=== PATIENT | male | born 1960 | race African-American/Black ===

== ENCOUNTER 2017-01-09 18:17 | Emergency (ER) | payer OTHER ==
[~2017-01-09] VITALS: Ht 180.3 cm; Wt 99.8 kg
[~2017-01-09 18:17] MED LIST: GLIP10TA3 PO; METF10002 PO
[2017-01-09] MEDS ORDERED: JANUVIA PO (18:25)
[2017-01-09] MEDS ORDERED: NORCO PO (18:25)
[2017-01-09] MEDS ORDERED: IV NORMAL SALINE 1000 ML BAG IV ONE (18:45)
[2017-01-09 18:56] LABS: BASOPHILS % (AUTO) 0.8 % (0.0-2.0); EOSINOPHILS # (AUTO) 0.1 K/uL (0.0-0.7); EOSINOPHILS % (AUTO) 4.2 % (0.0-7.0); HEMATOCRIT 43.1 % (40-50); HEMOGLOBIN 13.9 G/DL (14.0-18.0); LYMPHOCYTES # (AUTO) 1.6 K/UL (0.8-4.8); LYMPHOCYTES % (AUTO) 45.1 % (20.5-51.5); MEAN CORPUSCULAR HEMOGLOBIN 25.3 UUG (27.0-31.0); MEAN CORPUSCULAR HGB CONC 32 g/dL (32.0-37.0); MEAN CORPUSCULAR VOLUME 78.5 FL (82.0-92.0); MONOCYTES # (AUTO) 0.2 K/UL (0.1-1.30); MONOCYTES % (AUTO) 6.5 % (0.0-11.0); NEUTROPHILS # (AUTO) 1.5 K/UL (1.8-8.9); NEUTROPHILS % (AUTO) 43.4 % (38.5-71.5); PLATELET COUNT (AUTO) 177 K/UL (150-450); RED BLOOD CELL COUNT(AUTO) 5.49 MIL/UL (4.7-6.1); WHITE BLOOD COUNT (AUTO) 3.4 K/UL (4.0-11.2)
--- NOTE | 2017-01-09 19:05 | NUR ---
PT IS IN ROOM #1B. DR SANDY EVALUATED THE PT.
[2017-01-09 19:09] LABS: BILIRUBIN,DIRECT 0.1 mg/dL (0.0-0.2); BILIRUBIN,TOTAL 0.3 mg/dL (0.2-1.0); POTASSIUM 4.3 mmol/L (3.5-5.1); TOTAL PROTEIN, SERUM 7.7 g/dL (6.4-8.2)
[2017-01-09] MEDS ORDERED: INSULIN REGULAR, HUMAN 1,000 UNITS/10 ML VIAL SUBCUT ONE (20:30)
[2017-01-09] MEDS ORDERED: INSULIN REGULAR, HUMAN 300 UNIT/3 ML VIAL ONE (20:52)
--- NOTE | 2017-01-09 20:52 | NUR ---
mse completed, pt d/c'd home, aci given. iv d/c'd intact ,pt ambulated w/o diff, took all belongings.
[2017-01-09 20:53] VITALS: BP 129/85
== END 2017-01-09 20:54 | disposition home or self-care (01) ==
LOC: ER 18:17
DX: R55 Syncope and collapse (principal); E11.65 Type 2 diabetes mellitus with hyperglycemia; Z79.4 Long term (current) use of insulin
CPT/HCPCS: 36415; 70450; 71010; 80048; 80076; 82962 ×2; 84484; 85025; 85730; 93005; 96360; 96372; 99285; A4663; J1815; J7030; 70030-TC

== ENCOUNTER 2018-05-05 21:19 | Emergency (ER) | payer MEDICAID ==
[~2018-05-05] VITALS: Ht 180.3 cm; Wt 102.5 kg
[~2018-05-05 21:19] MED LIST changes: +JANUVIA PO; +METF-442 PO; -METF10002 PO; +NORCO PO
[2018-05-05] MEDS ORDERED: BASAGLAR SQ (21:28)
--- NOTE | 2018-05-05 21:30 | NUR ---
Pt ambulated to ER with with c/o shortness of breath. Respirations even + unlabored. SA02 97% room air. NAD noted. Pt states he stopped drinking alcohol 2 weeks ago. No chest pain. No GI/ distress. No fever/chills/cough. at bedside. Will ctm.
--- NOTE | 2018-05-05 21:58 | NUR ---
Dr. Miller DURBIN MD at bedside to evaluate pt.
--- NOTE | 2018-05-05 23:16 | NUR ---
Patient discharged to home in stable conditon. Written and verbal after care instructions given. Patient verbalizes understanding of instructions. Pt ambulated out of ER in steady gait. All belongings w pt. VSS. Pt left with .
[2018-05-05 23:22] VITALS: BP 147/92
== END 2018-05-05 23:31 | disposition home or self-care (01) ==
LOC: ER 21:21
DX: R06.02 Shortness of breath (principal); E11.9 Type 2 diabetes mellitus without complications; Z79.899 Other long term (current) drug therapy
CPT/HCPCS: 36415; 71045; A4663

== ENCOUNTER 2018-12-31 04:55 | Emergency (ER) | payer MEDICAID ==
[~2018-12-31] VITALS: Ht 180.3 cm; Wt 91.6 kg
[~2018-12-31 04:55] MED LIST changes: +BASAGLAR SQ; -GLIP10TA3 PO; -METF-442 PO
--- NOTE | 2018-12-31 05:13 | NUR ---
Dr. Bhatt at bedside for MSE.
[2018-12-31] MEDS ORDERED: INSULIN REGULAR, HUMAN 300 UNIT/3 ML VIAL SQ ONE (05:15)
[2018-12-31] MEDS ORDERED: INSULIN REGULAR, HUMAN 300 UNIT/3 ML VIAL ONE (05:15)
--- NOTE | 2018-12-31 05:49 | NUR ---
Patient discharged to home in stable conditon by Dr. Bhatt. Written and verbal after care instructions given. Patient verbalizes understanding of instructions. Pt out of ER with steady gait, no acute signs of distress, VSS, all belongings taken.
[2018-12-31 05:50] VITALS: BP 145/90
== END 2018-12-31 05:51 | disposition home or self-care (01) ==
LOC: ER 04:57
DX: E11.65 Type 2 diabetes mellitus with hyperglycemia (principal); Z79.899 Other long term (current) drug therapy
CPT/HCPCS: 96372; 99283; J1815; A4663

== ENCOUNTER 2019-02-20 20:16 | Emergency (ER) | payer MEDICAID ==
[~2019-02-20] VITALS: Ht 180.3 cm; Wt 93.9 kg
[2019-02-20] MEDS ORDERED: predniSONE 50 MG TABLET ONE (21:06)
[2019-02-20] MEDS ORDERED: ACETAMINOPHEN ES 500 MG TABLET ONE (21:06)
[2019-02-20] MEDS ORDERED: predniSONE 10 MG TABLET ONE (21:06)
[2019-02-20] MEDS: ACETAMINOPHEN ES 500 MG TABLET PO ONE (21:11)
[2019-02-20] MEDS: predniSONE 20 MG TABLET PO ONE (21:11)
--- NOTE | 2019-02-20 21:52 | NUR ---
Patient discharged to home in stable conditon. Written and verbal after care instructions given. Patient verbalizes understanding of instructions.prt walks in steady gait. pt with
[2019-02-20 21:53] VITALS: BP 141/88
== END 2019-02-20 21:54 | disposition home or self-care (01) ==
LOC: ER 20:24
DX: J20.9 Acute bronchitis, unspecified (principal); J09.X2 Influenza due to identified novel influenza A virus with other respiratory manifestations; E11.9 Type 2 diabetes mellitus without complications; Z79.899 Other long term (current) drug therapy
CPT/HCPCS: 71045; 87400; 99284; J7512 ×2; A4663; A9150

== ENCOUNTER 2019-04-27 17:38 | Emergency (ER) | payer MEDICAID ==
[~2019-04-27] VITALS: Ht 180.3 cm; Wt 93.0 kg
[2019-04-27] MEDS ORDERED: OXYCODONE/APAP 5-325 MG TABLET PO ONE (18:15)
[2019-04-27] MEDS ORDERED: OXYCODONE/APAP 5-325 MG TABLET ONE (18:20)
[2019-04-27 18:21] VITALS: BP 135/81
--- NOTE | 2019-04-27 18:21 | NUR ---
Patient discharged to home in stable conditon. Written and verbal after care instructions given. Patient verbalizes understanding of instructions. Patient ambulated with stable gait and was instructed not to drive. States will be driving.
== END 2019-04-27 18:22 | disposition home or self-care (01) ==
LOC: ER 17:40
DX: E11.40 Type 2 diabetes mellitus with diabetic neuropathy, unspecified (principal)
CPT/HCPCS: A4663

== ENCOUNTER 2019-05-12 14:13 | Emergency (ER) | payer MEDICAID ==
[~2019-05-12] VITALS: Ht 180.3 cm; Wt 93.9 kg
--- NOTE | 2019-05-12 14:35 | NUR ---
Patient discharged to home in stable condition & brisk steady gait. Written and verbal after care instructions given to patient and spouse. Patient verbalized understanding & compliance of instructions.
== END 2019-05-12 14:40 | disposition home or self-care (01) ==
LOC: ER 14:13
DX: E11.40 Type 2 diabetes mellitus with diabetic neuropathy, unspecified (principal); Z79.899 Other long term (current) drug therapy
CPT/HCPCS: A4663

== ENCOUNTER 2019-06-06 07:58 | Emergency (ER) | payer MEDICAID ==
[~2019-06-06] VITALS: Ht 180.3 cm; Wt 93.9 kg
--- NOTE | 2019-06-06 08:17 | NUR ---
PT IS IN ROOM #2A. DR ACE EVALUATED THE PT.
--- NOTE | 2019-06-06 09:08 | NUR ---
PT WAS D/C'd TO HOME. D/C INSTRUCTIONS GIVEN TO THE PT.
[2019-06-06 09:09] VITALS: BP 142/84
== END 2019-06-06 09:10 | disposition home or self-care (01) ==
LOC: ER 08:01
DX: E11.40 Type 2 diabetes mellitus with diabetic neuropathy, unspecified (principal); M79.652 Pain in left thigh; Z79.4 Long term (current) use of insulin; G89.29 Other chronic pain
CPT/HCPCS: 73551; A4663

== ENCOUNTER 2019-07-04 14:38 | Emergency (ER) | payer MEDICAID ==
[~2019-07-04] VITALS: Ht 180.3 cm; Wt 93.9 kg
--- NOTE | 2019-07-04 14:54 | NUR ---
ermd at bedside for hx and physical
[2019-07-04] MEDS ORDERED: MORPHINE SULFATE 4 MG/1 ML DISP.SYRIN ONE (14:58)
[2019-07-04] MEDS ORDERED: MORPHINE SULFATE 4 MG/1 ML DISP.SYRIN IM ONE (15:00)
--- NOTE | 2019-07-04 15:10 | NUR ---
PT ABLE TO TOLERATEPAIN MEDS PER IM
--- NOTE | 2019-07-04 15:12 | NUR ---
Patient discharged to home in stable condition. Written and verbal after care instructions given. Patient verbalizes understanding of instructions. Stressed follow up or return to ER for worsening s/s. AMBULATORY W/ STABLE GATI ALL BELONGINGS W/ PT
[2019-07-04 15:13] VITALS: BP 148/76
--- NOTE | 2019-07-04 15:13 | NUR ---
PT ACKNOWLEDGES HE WILL NOT DRIVE AND WILL TAKE [facility]BER HOME
== END 2019-07-04 15:17 | disposition home or self-care (01) ==
LOC: ER 14:38
DX: G89.29 Other chronic pain (principal); M25.551 Pain in right hip; E11.40 Type 2 diabetes mellitus with diabetic neuropathy, unspecified; M54.30 Sciatica, unspecified side; Z79.4 Long term (current) use of insulin
CPT/HCPCS: 96372; 99283; J2270; A4663

== ENCOUNTER 2019-07-15 13:06 | Emergency (ER) | payer MEDICAID ==
[~2019-07-15] VITALS: Ht 180.3 cm; Wt 84.8 kg
--- NOTE | 2019-07-15 13:30 | NUR ---
PT PRESENTED TO ER IN STABLE CONDITION W/STEADY GAIT C/O R HIP PAIN . PT STATES HE HAS CHRONIC LOWER BACK AND HIP PAIN . PT HAS TRIED ACCUPUNCTURE AND THE PAIN GOT WORSE AFTER. V/S STABLE .
--- NOTE | 2019-07-15 13:31 | NUR ---
MD@[email or web address], medical screening exam in progress
[2019-07-15] MEDS ORDERED: MORPHINE SULFATE 4 MG/1 ML DISP.SYRIN IM ONE (13:45)
[2019-07-15] MEDS ORDERED: MORPHINE SULFATE 4 MG/1 ML DISP.SYRIN ONE (13:53)
--- NOTE | 2019-07-15 15:10 | NUR ---
Patient discharged to home in stable condition. Written and verbal after care instructions given. Patient verbalizes understanding of instructions. Stressed follow up or return to ER for worsening s/s.PT TOLD NOT TO DRIVE.
[2019-07-15 15:22] VITALS: BP 140/75
== END 2019-07-15 15:10 | disposition home or self-care (01) ==
LOC: ER 13:09
DX: M25.552 Pain in left hip (principal); E11.40 Type 2 diabetes mellitus with diabetic neuropathy, unspecified; M16.12 Unilateral primary osteoarthritis, left hip; G89.29 Other chronic pain; M54.30 Sciatica, unspecified side
CPT/HCPCS: 72170; 73502; 96372; 99284; J2270; A4663

== ENCOUNTER 2019-07-21 18:33 | Emergency (ER) | payer MEDICAID ==
[~2019-07-21] VITALS: Ht 180.3 cm; Wt 84.8 kg
--- NOTE | 2019-07-21 19:04 | NUR ---
Patient is waiting in ER waiting room@this time
--- NOTE | 2019-07-21 19:15 | NUR ---
Pt ambulated to ER on steady gait. Alert and oriented x 4. Brought self in for complaints of lower back pain/buttocks pain, 08/31. Not in any acute distress. Denies chest pain and other signs of discomfort. Denies /GI symptoms. Sitting in bed at this time. Fall and safety precautions maintained.
--- NOTE | 2019-07-21 19:27 | NUR ---
Dr Aguilar at bedside for MSE.
[2019-07-21] MEDS ORDERED: OXYCODONE/APAP 5-325 MG TABLET PO ONE (19:30)
[2019-07-21] MEDS ORDERED: IBUPROFEN 400 MG TABLET PO ONE (19:30)
[2019-07-21] MEDS ORDERED: IBUPROFEN 400 MG TABLET ONE (19:38)
[2019-07-21] MEDS ORDERED: OXYCODONE/APAP 5-325 MG TABLET ONE (19:39)
--- NOTE | 2019-07-21 19:49 | NUR ---
Patient discharged to home in stable condition. Written and verbal after care instructions given. Patient verbalizes understanding of instructions. Stressed follow up or return to ER for worsening s/s. 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 Per patient, he has someone to give him a ride. Left in stable condition.
[2019-07-21 19:51] VITALS: BP 148/90
== END 2019-07-21 19:51 | disposition home or self-care (01) ==
LOC: ER 18:36
DX: M54.42 Lumbago with sciatica, left side (principal); M25.559 Pain in unspecified hip; G89.4 Chronic pain syndrome; E11.40 Type 2 diabetes mellitus with diabetic neuropathy, unspecified; Z87.891 Personal history of nicotine dependence; Z79.4 Long term (current) use of insulin
CPT/HCPCS: A4663

== ENCOUNTER 2019-10-15 18:29 | Emergency (ER) | payer MEDICAID ==
[~2019-10-15] VITALS: Ht 180.3 cm; Wt 82.6 kg
--- NOTE | 2019-10-15 18:58 | NUR ---
PT IS IN ROOM #2A. DR GAY EVALUATED THE PT.
--- NOTE | 2019-10-15 19:20 | NUR ---
Patient discharged to home in stable condition. Rx given. States will drive him home, instructed not to drive while taking medication. ambulated with steady gait, took all belongings. Written and verbal after care instructions given. Patient verbalizes understanding of instructions. Stressed follow up or return to ER for worsening s/s.
[2019-10-15] MEDS ORDERED: HYDROCODONE/APAP 5-325MG TABLET ONE (19:21)
[2019-10-15 19:22] VITALS: BP 130/82
[2019-10-15] MEDS ORDERED: HYDROCODONE/APAP 5-325MG TABLET PO ONE (19:45)
== END 2019-10-15 19:38 | disposition home or self-care (01) ==
LOC: ER 18:33
DX: M54.42 Lumbago with sciatica, left side (principal); S76.912A Strain of unspecified muscles, fascia and tendons at thigh level, left thigh, initial encounter; X50.0XXA Overexertion from strenuous movement or load, initial encounter; X50.9XXA Other and unspecified overexertion or strenuous movements or postures, initial encounter; Y93.89 Activity, other specified; E11.40 Type 2 diabetes mellitus with diabetic neuropathy, unspecified; G89.4 Chronic pain syndrome; K21.9 Gastro-esophageal reflux disease without esophagitis; F90.9 Attention-deficit hyperactivity disorder, unspecified type; Z87.891 Personal history of nicotine dependence; Z79.4 Long term (current) use of insulin
CPT/HCPCS: A4663

== ENCOUNTER 2019-11-30 21:08 | Emergency (ER) | payer MEDICAID ==
[~2019-11-30] VITALS: Ht 180.3 cm; Wt 83.9 kg
--- NOTE | 2019-11-30 21:35 | NUR ---
Dr. Faith at bedside for MSE.
--- NOTE | 2019-11-30 21:47 | NUR ---
Patient cleared for discharge. Written and verbal after care instructions given. Patient verbalizes understanding of instructions. Stressed follow up or return to ER for worsening s/s. Ambulated out of ER in steady gait, to home in stable condition.
[2019-11-30 21:48] VITALS: BP 140/85
== END 2019-11-30 21:50 | disposition home or self-care (01) ==
LOC: ER 21:10
DX: L25.9 Unspecified contact dermatitis, unspecified cause (principal); S80.862A Insect bite (nonvenomous), left lower leg, initial encounter; S80.861A Insect bite (nonvenomous), right lower leg, initial encounter; W57.XXXA Bitten or stung by nonvenomous insect and other nonvenomous arthropods, initial encounter; Y92.89 Other specified places as the place of occurrence of the external cause; G89.4 Chronic pain syndrome; E11.40 Type 2 diabetes mellitus with diabetic neuropathy, unspecified; Z79.4 Long term (current) use of insulin; F17.201 Nicotine dependence, unspecified, in remission; F90.9 Attention-deficit hyperactivity disorder, unspecified type; K21.9 Gastro-esophageal reflux disease without esophagitis; M54.32 Sciatica, left side
CPT/HCPCS: A4663

== ENCOUNTER 2021-08-19 01:53 | Emergency (ER) | payer MEDICAID ==
[~2021-08-19] VITALS: Ht 180.3 cm; Wt 91.2 kg
--- NOTE | 2021-08-19 03:57 | NUR ---
Placed in 4B.
[2021-08-19] MEDS ORDERED: AMOXICILLIN-CLAVUL 875-125MG TABLET ONE (04:57)
[2021-08-19] MEDS ORDERED: AMOXICILLIN-CLAVUL 875-125MG TABLET PO ONE (05:00)
[2021-08-19] MEDS ORDERED: AMOX-430 PO ×2 (05:01→05:08)
--- NOTE | 2021-08-19 05:12 | NUR ---
Patient discharged to home in stable condition. Written and verbal after care instructions given. Patient verbalizes understanding of instructions. Stressed follow up or return to ER for worsening s/s. pt ambulated with steady gait. denies pain. no SOB. no chest pain. AOx4
[2021-08-19 05:13] VITALS: BP 128/74
== END 2021-08-19 05:14 | disposition home or self-care (01) ==
LOC: ER 01:57
DX: K11.20 Sialoadenitis, unspecified (principal); Z79.84 Long term (current) use of oral hypoglycemic drugs; Z87.891 Personal history of nicotine dependence; G89.4 Chronic pain syndrome; E11.40 Type 2 diabetes mellitus with diabetic neuropathy, unspecified
CPT/HCPCS: A4663